=== PATIENT | female | born 1990 | race Caucasian/White ===

== ENCOUNTER → 2018-08-03 | Day surgery (SDC) | payer OTHER ==
--- NOTE | 2018-08-02 20:32 | PDGENHP ---
History and Physical - Chief Complaint LEFT HIP PAIN - History of Present Illness 1. Bilateral~Hip Dyplasia~ 2. ~~History of post-op monitoring for asthma/respiratory status HISTORY OF PRESENT ILLNESS: Gamais a~27 y.o.~very~~active~female~who I have had the pleasure to consult on today.~I have enjoyed meeting her.~Penelope~lives in [place].~~[employer] as a [employer] employee.~~She~is ;~she~has no~children. ~Gamaenjoys soccer (played for [employer]), running, hiking. Claudia's~left~hip pain started in around 10 yrs ago with worsening in last 1- 1.5 yrs, with~no~recalled trauma or injury, and with~some~previous complaints.~ Gamadoes not have~a known history of hip dysplasia, but does have a family history of dysplasia. Presentation today is of~anterolateral~left~hip pain deep inside. ~The hip~does~ wake her~at night and~does~click and catch on~her. Sitting~can be uncomfortable~ for her.~Gamadoes~report suffering from lower back pain episodes which preceded her hip pain.~She has scoliosis with 30 degree curve being managed conservatively.~As she has gotten her back pain under better control, her hip has become more bothersome. Gamahas~participated in physical therapy since early September 2017 (also did PT last summer)~and has~tried other conservative measures including dry needling, cortisone injection into the SIJs (2016- she had relatively good relief from these)~and chiropractic treatments.~Penelope~has not~received sufficient symptomatic improvement. Gamahas~utilized medication for pain management, including NSAID.~Gamahas used medication for 2-3x per week at most intermittently for years. Gamadenies issues with the right~hip. ~ Gamaunderstands that~penelope~has a hip and pelvis problem which should be researched and wishes to get a better understanding of~her~hip status, followed by an establishment of a treatment strategy, hoping~penelope~would be able to get back to~her~well being active life. History: Past medical history:~~ Patient~~has a past medical history of Asthma, Scoliosis, and Unspecified asthma (493.90). Relevant familial history:~Hip dysplasia Past surgical history:~ No. Surgery Anesthesia Year Outcome 1 Sinus surgery Unknown In high school Stayed o/n to monitor asthma 2 Adenoids Unknown Childhood Good Claudia~describes problematic issues with general anesthesia which includes overnight monitoring for asthma. I have reviewed, verified and agree with the past medical, surgical, family and social history. Current Medications:~has a current medication list which includes the following prescription(s): albuterol, budesonide-formoterol, and diclofenac sodium 1%. ALLERGIES:~is allergic to sulfa (sulfonamide antibiotics). Objective: Physical Examination: Gamais 5~feet~4~inches tall and weighs~127~Lbs. Gamais AAO x3; she~is well -nourished, in NAD. Skin is warm and dry. ~Breathing is non-labored. ~CV with RRR by pulse. Abdomen is soft, NTND. Currently,~she~walks with a~normal~gait. Trendelenburg sign is~negative~and proprioception~is normal,~both~side. She~presents~with mild~signs of joint laxity.~Beightons Score:2 ~(knees) Lower spine examination is~negative~for sciatic or femoral nerve irritation with negative~SLR &~femoral stretch tests. Range of motion of the spine is normal~for flexion, extension, and rotations,~with~associated pain on flexion.~~ Strength, Sensation and pulses are~normal -~bilaterally Ankles and knees exams are~normal~and~no~mal-alignment is evident.~ She~has~small R<L~leg length discrepancy. Thigh circumference is~symmetric~with no evidence for muscle atrophy~on both~ side. Hip ROM (degrees): FL ER At 90~hip FL IR At 90~hip FL AB AD EX IR Neutral hip ER Neutral hip R 110 50 40 50 5 10 45 25 L 110 50 30 50 5 10 45 15 Specific hip and pelvis tests: Impingement Test KORTNEY Roll Add. Longus R Negative Negative Negative Negative L +++ +++ Negative Negative Glut. Med ITB Posterior Imp R Negative 5/5 strength Negative 5/5 strength Negative L Negative 5/5 strength Negative 5/5 strength Negative Squeeze test measured~normal Bony Symphysis pubis is~mildly painful to touch~while concentric activity of the rectus abdominis, does not~produce pain at its insertion. Ilio Psos specific tests are~negative for pain during cycling for~the right hip~ and remarkable for non painful snap HF has~some pain(+++) with no weakness~the left hip. No lateral~capsule tenderness on the L.~ Greater trochanteric burse is~mildly~painful~on the left hip. Piriformis tests: FAIR is~negative,~with no~local signs of neuritis related to sciatic nerve. SIJs examination is~produces~mild~~pain on right side~with~normal~KORTNEY in relation and local tenderness. Hamstrings tests are~negative~functional contraction and negative~tendinopathy both hips. On a daily basis, the following percentages reflectArturo's overall total pain: Deep hip:~75% SIJs/ low back:~25% Imaging: Radiology studies which I~have personally reviewed, analyzed and measured are below: XR: AP of the hip and pelvis: Performed in a~good~technique Coccyx to pubic symphysis distance~1.6~cm. 3~degrees cephal [place]~Lines are preserved. Minimal~Pathological signs are seen in the Symphysis Pubis.~ No~Pathological signs are seen at the Ischial~tuberosity. ~ Specific measurements show: NSA~ LCE Sourcil~Angle Sharp's angle Lat. Cam Lat. Pincer C.Over~sign Head~Coverage % ATDmm R 137 15 13 40 Neg Neg Neg 65% 31.3 L 143 11 17 48 Neg Neg 12 o'clock 61% 33.3 Pos. wall sign ISS NAD ~~Dysplasia Comments R Negative Negative 19.6~mm ++ L + Negative 18.9~mm +++ Sclerosis Sup. Lat. OA Cysts Joint Space-WBZ Joint Space-Medial R Negative Negative Negative 7.0~mm 6.6~mm L Negative Negative Negative 6.3~mm 6.4~mm X Table lateral: Anterior cam lesion is~not seen~on both hips. Alpha Angle: ~ Right~57~degrees Left~63~degrees Impression and plan:Wilmer Malloyis a~27 y.o.~active female~suffering from symptomatic~Left~hip pain due to Hip Dyplasia~and labral tear~causing significant disability to~her~and altering~her~sport and life activities. Physical examination, imaging, and~her~story correspond with the diagnosis mentioned above. I explained that hip dysplasia is a condition wherein the hip joint has excessive play and instability due to a variety of factors, including the depth and adequacy of the socket, the orientation of the femur bone, and ligament laxity around the hip joint. Dysplasia ranges in severity from borderline to armando, with treatment options being specific to the specific nature of the problem. Left untreated, the instability in the hip joint can cause progressive tearing of the labrum and deterioration of the surface cartilage, ultimately resulting in progressive osteoarthritis of the hip. I reviewed conservative treatment options for dysplasia including activity modification to avoid positions of instability, physical therapy, non-steroidal anti-inflammatory medications, and various injections (corticosteroid and PRP) aimed at reducing inflammation in the hip joint or/and preventing dynamic instability and impingement. Although these measures may help to buy time, they are not a definitive solution to the problem given the underlying abnormality in the shape of the hip joint. Patients who have failed conservative management and continue to experience symptoms are candidates for definitive surgical treatment, which may consist of hip arthroscopy alone or in combination with more invasive bony realignment procedures of the hip socket and/or femur called periacetabular osteotomy (NAFISA) or derotational femoral osteotomy (DFO). Hip arthroscopy typically includes treating the labrum with either repair or reconstruction of the torn labrum; as well as addressing the underlying abnormalities by restoring the normal shape of the hip joint. ~If the cartilage is damaged a Microfracture surgical procedure may also be necessary to help stimulate the growth of fibrocartilage. If a patient requires a labral reconstruction or a Microfracture, the initial rehabilitation from the surgery may take longer, but the penitentiary results are typically favorable. I reviewed the technical aspects of periacetabular osteotomy (NAFISA) including risks, benefits, and expected course of recovery.~Claudia~understands that NAFISA is an inpatient procedure carried out through two medium sized incisions on the front and back of the hip joint. The hip socket is cut, realigned, and stabilized with 2 3 internal screws. Risks include infection, bleeding, injury to nearby nerves or vessels, stiffness, persistent pain, instability, failure of bony healing, implant related complications, and venous thromboembolic disease. Rarely, revision surgery may be required to address these problems. Risks, potential complications, side effects and recovery from surgical procedure were discussed in length. We explained how this surgery is an open procedure, and though patients tend to do well in the long-term, it involves significant pain in the first 2-4 weeks post-op and a rather lengthy rehab.~Overall recovery takes approximately 6 12~months depending on the extent of damage and degree of repair. Gamaunderstands that she~will undergo hip arthroscopy 1 week prior to the NAFISA to address damage inside the hip joint. Claudia~understands that hip arthroscopy and NAFISA are two separate procedures that are best performed one week apart, with the arthroscopy commencing first to "tighten up" any pathology evident in the hip joint (labral repair, etc.) and the NAFISA open procedure occurring 7-10 days later to realign the acetabulum. Gamawill review the info presented. In order to obtain more detailed information regarding the alignment, orientation, and shape of the bony hip and pelvis I will order a CT scan to be performed. The results of the CT scan, including femoral torsion and acetabular version measured values and 3D images, will aid me in deciding on the best treatment strategy and surgical pre-planning. In order to better evaluate the soft tissues and cartilage of the hip joint, I will order an MRI scan. Claudia is going to contact us after completing her imaging studies. Gamais happy with this plan. I have also supplied~her~with handouts, outlining the expected surgical treatment and rehab involved. I wish~Gamaall the best, ~~ Tari Ahuja MD History Information - Allergies/Home Medication List Allergies/Adverse Reactions: Sulfa (Sulfonamide Antibiotics) Allergy (Verified 07/23/18 09:18) Rash Home Medications: Albuterol Sulfate Hfa PRN 07/23/18 [Last Taken Unknown] Herbals/Supplements -Info Only DAILY 07/23/18 [Last Taken Unknown] I have personally reviewed and updated: medical history - Social History Smoking Status: Never smoked Review of Systems Review of Systems: Physical Exam Physical Exam:
[~2018-08-03] MED LIST: ACETAMINOPHEN 500 MG TAB PO ONE; ACETAMINOPHEN 500 MG TAB PO PRN; ALBUTEROL 3 ML DEYVIAL IH PRN; BUPIVACAINE/EPI 0.25% 30 ML SDV ONE; DEXAMETHASONE 4 MG/ML VIAL IVP PRN; DEXAMETHASONE 4 MG/ML VIAL ONE; DIAZEPAM 5 MG/ML 1 ML SYR IVP PRN; EPINEPHrine 1 MG/ML INJ ONE; HYDROmorphONE/DILAUDID 1 MG/ML INJ IVP PRN; KETOROLAC 30 MG/1 ML SDV ONE; LABETALOL HCL 5 MG/ML 20 ML MDV IVP PRN; LIDOCAINE 2% 5 ML SDV ONE; LR 1,000 ML IV ONE; LR 500 ML IV PRN; MEPERIDINE 25 MG/0.5 ML AMP IVP PRN; METOCLOPRAMIDE 10 MG/2 ML VIAL IVP PRN; MIDAZOLAM 2 MG/2 ML VIAL IVP ONE; NALOXONE HCL 0.4 MG/ML INJ IVP PRN; ONDANSETRON 4 MG/2 ML VIAL IVP PRN; ONDANSETRON 4 MG/2 ML VIAL ONE; ONDANSETRON DISINTEGRATING 4 MG TAB ONE; ONDANSETRON DISINTEGRATING 4 MG TAB PO ONE; PHENYLEPHRINE HCL 100 MCG/ML SYR IVP PRN; PREGABALIN 150 MG CAP PO ONE; PROMETHAZINE HCL 25 MG/ML INJ IVP PRN; PROPOFOL 200 MG/20 ML VIAL ONE; PROPOFOL/EMULSION 500 MG/50 ML BOTTLE IV ONE; ROCURONIUM 50 MG/5 ML VIAL ONE; SCOPOLAMINE HYDROBROMIDE 1 MG/3 DAYS PATCH TD ONE; ceFAZolin 2 GM/DEXTROSE 100 ML IV ONE; fentaNYL 100 MCG/2 ML INJ IVP PRN; fentaNYL 100 MCG/2 ML INJ ONE; oxyCODONE IR 5 MG TAB ONE; oxyCODONE IR 5 MG TAB PO PRN
--- NOTE | 2018-08-03 07:44 | PDANEPAE ---
ANE History of Present Illness left hip pain ANE Past Medical History - Cardiovascular History Hx Hypertension: No Hx Arrhythmias: No Hx Chest Pain: No Hx Coronary Artery / Peripheral Vascular Disease: No Hx CHF / Valvular Disease: No Hx Palpitations: No - Pulmonary History Hx COPD: No Hx Asthma/Reactive Airway Disease: Yes Hx Recent Upper Respiratory Infection: No Hx Oxygen in Use at Home: No Hx Sleep Apnea: No Sleep Apnea Screening Result - Last Documented: Negative Pulmonary History Comment: EXERCISE INDUCED ASTHMA - Neurologic History Hx Cerebrovascular Accident: No Hx Seizures: No Hx Dementia: No - Endocrine History Hx Diabetes: No Hypothyroid: No Hyperthyroid: No Obesity: no - Renal History Hx Renal Disorders: No - Liver History Hx Hepatic Disorders: No - Neurological & Psychiatric Hx Hx Neurological and Psychiatric Disorders: No - Cancer History Hx Cancer: No - Congenital Disorder History Hx Congenital Disorders: Yes Congenital History Comment: MARTHA HIP DYSPLASIA - GI History GERD: no Hx Gastrointestinal Disorders: No - Other Health History Other Health History: ANEMIA IN THE PAST (2013) - Chronic Pain History Chronic Pain: Yes (MARTHA HIPS) - Surgical History Prior Surgeries: ADENOIDS. SINUS 2007 ANE Review of Systems Review of systems is: negative Review of Systems: - Exercise capacity Exercise capacity: >=4 METS METS (RN): 6 METS ANE Patient History - Allergies Allergies/Adverse Reactions: Sulfa (Sulfonamide Antibiotics) Allergy (Verified 07/23/18 09:18) Rash - Home Medications Home medications: home medication list seen and reviewed Home Medications: Albuterol [Proventil Inhaler HFA (*)] 1 - 2 puffs IH Q4H PRN 07/23/18 [Last Taken 08/02/18] Ascorbic Acid [Vitamin C 500 mg (*)] 500 mg PO DAILY 08/03/18 [Last Taken Unknown] Multivitamins [Multivitamin (*)] 1 each PO DAILY 08/03/18 [Last Taken Unknown] Vitamin B Complex [Vitamin B Complex (OTC)] 1 each PO DAILY 08/03/18 [Last Taken Unknown] - NPO status NPO Status: no food or drink >8 hours NPO Since - Liquids (Date): 08/03/18 NPO Since - Liquids (Time): 02:30 NPO Since - Solids (Date): 08/02/18 NPO Since - Solids (Time): 19:00 - Anes Hx Anes Hx: no prior problems - Smoking Hx Smoking Status: Never smoked ANE Labs/Vital Signs - Vital Signs Vital Signs: reviewed preoperatively; see RN documention for details Blood Pressure: 114/74 Heart Rate: 55 Respiratory Rate: 16 O2 Sat (%): 98 Height: 161.93 cm Weight: 58.967 kg ANE Physical Exam - Airway Neck exam: FROM Mallampati Score: Class 1 Mouth exam: normal dental/mouth exam - Pulmonary Pulmonary: no respiratory distress - Cardiovascular Cardiovascular: regular rate and rhythym - ASA Status ASA Status: II ANE Anesthesia Plan Anesthesia Plan: general endotracheal anesthesia
--- NOTE | 2018-08-03 12:07 | POSTANESTH ---
Post Anesthetic Evaluation Cardiovascular Status: Normal, Stable Respiratory Status: Normal, Stable Level of Consciousness/Mental Status: Can Participate in Eval Pain Control: Adequate, Prn Tx Ordered Nausea/Vomiting Control: Adequate, Prn Tx Ordered Complications Possibly Related to Anesthesia: None Noted
--- NOTE | 2018-08-03 12:26 | POSTOPPROG ---
Post Op Note Date of Operation: 08/03/18 Surgeon: Chad Krueger Fact Checker: Dr. Parks Anesthesia: GET(General Endotracheal) Pre-op Diagnosis: LEFT BEATRIZ Post-op Diagnosis: LEFT BEATRIZ Procedure: Left Hip Arthroscopy Inf/Abcess present in the surg proc area at time of surgery?: No
[2018-08-03 12:31] VITALS: BP 106/71
== END | disposition home or self-care (01) ==
LOC: FSGY 06:39
PROVIDERS: ATTEND Orthopaedic Surgery Sports Medicine
PROC: 0SQB4ZZ Repair Left Hip Joint, Percutaneous Endoscopic Approach (ICD-10-PCS; principal; 2018-08-03 08:15)
DX: Q65.9 Congenital deformity of hip, unspecified (principal); M76.892 Other specified enthesopathies of left lower limb, excluding foot; M24.852 Other specific joint derangements of left hip, not elsewhere classified; J45.909 Unspecified asthma, uncomplicated
CPT/HCPCS: C1713; J0171; J0690; J1100; J1885; J2250; J2405; J2704; J3010

== ENCOUNTER 2018-08-10 05:52 | Inpatient (IN) | payer OTHER ==
--- NOTE | 2018-08-09 21:30 | PDGENHP ---
History and Physical - Chief Complaint LEFT HIP PAIN - History of Present Illness Diagnosis: 1. Bilateral~Hip Dyplasia~ 2. 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 ~Gamaenjoys soccer (played for [employer]), running, hiking. Claudia's~left~hip pain started in around 10 yrs ago with worsening in last 1- 1.5 yrs, with~no~recalled trauma or injury, and with~some~previous complaints.~ Gamadoes not have~a known history of hip dysplasia, but does have a family history of dysplasia. Presentation today is of~anterolateral~left~hip pain deep inside. ~The hip~does~ wake her~at night and~does~click and catch on~her. Sitting~can be uncomfortable~ for her.~Gamadoes~report suffering from lower back pain episodes which preceded her hip pain.~She has scoliosis with 30 degree curve being managed conservatively.~As she has gotten her back pain under better control, her hip has become more bothersome. Gamahas~participated in physical therapy since early September 2017 (also did PT last summer)~and has~tried other conservative measures including dry needling, cortisone injection into the SIJs (2016- she had relatively good relief from these)~and chiropractic treatments.~She~has not~received sufficient symptomatic improvement. Gamahas~utilized medication for pain management, including NSAID.~Gamahas used medication for 2-3x per week at most intermittently for years. Gamadenies issues with the right~hip. ~ Gamaunderstands that~penelope~has a hip and pelvis problem which should be researched and wishes to get a better understanding of~her~hip status, followed by an establishment of a treatment strategy, hoping~penelope~would be able to get back to~her~well being active life. History: Past medical history:~~ Patient~~has a past medical history of Asthma, Scoliosis, and Unspecified asthma (493.90). Relevant familial history:~Hip dysplasia Past surgical history:~ No. Surgery Anesthesia Year Outcome 1 Sinus surgery Unknown In high school Stayed o/n to monitor asthma 2 Adenoids Unknown Childhood Good Claudia~describes problematic issues with general anesthesia which includes overnight monitoring for asthma. I have reviewed, verified and agree with the past medical, surgical, family and social history. Current Medications:~has a current medication list which includes the following prescription(s): albuterol, budesonide-formoterol, and diclofenac sodium 1%. ALLERGIES:~is allergic to sulfa (sulfonamide antibiotics). Objective: Physical Examination: Gamais 5~feet~4~inches tall and weighs~127~Lbs. Gamais AAO x3; she~is well -nourished, in NAD. Skin is warm and dry. ~Breathing is non-labored. ~CV with RRR by pulse. Abdomen is soft, NTND. Currently,~she~walks with a~normal~gait. Trendelenburg sign is~negative~and proprioception~is normal,~both~side. She~presents~with mild~signs of joint laxity.~Beightons Score:2 ~(knees) Lower spine examination is~negative~for sciatic or femoral nerve irritation with negative~SLR &~femoral stretch tests. Range of motion of the spine is normal~for flexion, extension, and rotations,~with~associated pain on flexion.~~ Strength, Sensation and pulses are~normal -~bilaterally Ankles and knees exams are~normal~and~no~mal-alignment is evident.~ She~has~small R<L~leg length discrepancy. Thigh circumference is~symmetric~with no evidence for muscle atrophy~on both~ side. Hip ROM (degrees): FL ER At 90~hip FL IR At 90~hip FL AB AD EX IR Neutral hip ER Neutral hip R 110 50 40 50 5 10 45 25 L 110 50 30 50 5 10 45 15 Specific hip and pelvis tests: Impingement Test KORTNEY Roll Add. Longus R Negative Negative Negative Negative L +++ +++ Negative Negative Glut. Med ITB Posterior Imp R Negative 5/5 strength Negative 5/5 strength Negative L Negative 5/5 strength Negative 5/5 strength Negative Squeeze test measured~normal Bony Symphysis pubis is~mildly painful to touch~while concentric activity of the rectus abdominis, does not~produce pain at its insertion. Ilio Psos specific tests are~negative for pain during cycling for~the right hip~ and remarkable for non painful snap HF has~some pain(+++) with no weakness~the left hip. No lateral~capsule tenderness on the L.~ Greater trochanteric burse is~mildly~painful~on the left hip. Piriformis tests: FAIR is~negative,~with no~local signs of neuritis related to sciatic nerve. SIJs examination is~produces~mild~~pain on right side~with~normal~KORTNEY in relation and local tenderness. Hamstrings tests are~negative~functional contraction and negative~tendinopathy both hips. On a daily basis, the following percentages reflectArturo's overall total pain: Deep hip:~75% SIJs/ low back:~25% Imaging: Radiology studies which I~have personally reviewed, analyzed and measured are below: XR: AP of the hip and pelvis: Performed in a~good~technique Coccyx to pubic symphysis distance~1.6~cm. 3~degrees cephal [place]~Lines are preserved. Minimal~Pathological signs are seen in the Symphysis Pubis.~ No~Pathological signs are seen at the Ischial~tuberosity. ~ Specific measurements show: NSA~ LCE Sourcil~Angle Sharp's angle Lat. Cam Lat. Pincer C.Over~sign Head~Coverage % ATDmm R 137 15 13 40 Neg Neg Neg 65% 31.3 L 143 11 17 48 Neg Neg 12 o'clock 61% 33.3 Pos. wall sign ISS NAD ~~Dysplasia Comments R Negative Negative 19.6~mm ++ L + Negative 18.9~mm +++ Sclerosis Sup. Lat. OA Cysts Joint Space-WBZ Joint Space-Medial R Negative Negative Negative 7.0~mm 6.6~mm L Negative Negative Negative 6.3~mm 6.4~mm X Table lateral: Anterior cam lesion is~not seen~on both hips. Alpha Angle: ~ Right~57~degrees Left~63~degrees Impression and plan:Wilmer Malloyis a~27 y.o.~active female~suffering from symptomatic~Left~hip pain due to Hip Dyplasia~and labral tear~causing significant disability to~her~and altering~her~sport and life activities. Physical examination, imaging, and~her~story correspond with the diagnosis mentioned above. I explained that hip dysplasia is a condition wherein the hip joint has excessive play and instability due to a variety of factors, including the depth and adequacy of the socket, the orientation of the femur bone, and ligament laxity around the hip joint. Dysplasia ranges in severity from borderline to armando, with treatment options being specific to the specific nature of the problem. Left untreated, the instability in the hip joint can cause progressive tearing of the labrum and deterioration of the surface cartilage, ultimately resulting in progressive osteoarthritis of the hip. I reviewed conservative treatment options for dysplasia including activity modification to avoid positions of instability, physical therapy, non-steroidal anti-inflammatory medications, and various injections (corticosteroid and PRP) aimed at reducing inflammation in the hip joint or/and preventing dynamic instability and impingement. Although these measures may help to buy time, they are not a definitive solution to the problem given the underlying abnormality in the shape of the hip joint. Patients who have failed conservative management and continue to experience symptoms are candidates for definitive surgical treatment, which may consist of hip arthroscopy alone or in combination with more invasive bony realignment procedures of the hip socket and/or femur called periacetabular osteotomy (NAFISA) or derotational femoral osteotomy (DFO). Hip arthroscopy typically includes treating the labrum with either repair or reconstruction of the torn labrum; as well as addressing the underlying abnormalities by restoring the normal shape of the hip joint. ~If the cartilage is damaged a Microfracture surgical procedure may also be necessary to help stimulate the growth of fibrocartilage. If a patient requires a labral reconstruction or a Microfracture, the initial rehabilitation from the surgery may take longer, but the truck terminal manager results are typically favorable. I reviewed the technical aspects of periacetabular osteotomy (NAFISA) including risks, benefits, and expected course of recovery.~Claudia~understands that NAFISA is an inpatient procedure carried out through two medium sized incisions on the front and back of the hip joint. The hip socket is cut, realigned, and stabilized with 2 3 internal screws. Risks include infection, bleeding, injury to nearby nerves or vessels, stiffness, persistent pain, instability, failure of bony healing, implant related complications, and venous thromboembolic disease. Rarely, revision surgery may be required to address these problems. Risks, potential complications, side effects and recovery from surgical procedure were discussed in length. We explained how this surgery is an open procedure, and though patients tend to do well in the long-term, it involves significant pain in the first 2-4 weeks post-op and a rather lengthy rehab.~Overall recovery takes approximately 6 12~months depending on the extent of damage and degree of repair. Claudia~understands that she~will undergo hip arthroscopy 1 week prior to the NAFISA to address damage inside the hip joint. Claudia~understands that hip arthroscopy and NAFISA are two separate procedures that are best performed one week apart, with the arthroscopy commencing first to "tighten up" any pathology evident in the hip joint (labral repair, etc.) and the NAFISA open procedure occurring 7-10 days later to realign the acetabulum. Claudia~will review the info presented. In order to obtain more detailed information regarding the alignment, orientation, and shape of the bony hip and pelvis I will order a CT scan to be performed. The results of the CT scan, including femoral torsion and acetabular version measured values and 3D images, will aid me in deciding on the best treatment strategy and surgical pre-planning. In order to better evaluate the soft tissues and cartilage of the hip joint, I will order an MRI scan. Claudia is going to contact us after completing her imaging studies. Gamais happy with this plan. I have also supplied~her~with handouts, outlining the expected surgical treatment and rehab involved. I wish~Gamaall the best, ~~ History Information - Allergies/Home Medication List Allergies/Adverse Reactions: Sulfa (Sulfonamide Antibiotics) Allergy (Verified 08/06/18 11:00) Rash Home Medications: Albuterol [Proventil Inhaler HFA (*)] 1 - 2 puffs IH Q4H PRN 07/23/18 [Last Taken 08/02/18] Ascorbic Acid [Vitamin C 500 mg (*)] 500 mg PO DAILY 08/03/18 [Last Taken Unknown] Multivitamins [Multivitamin (*)] 1 each PO DAILY 08/03/18 [Last Taken Unknown] Vitamin B Complex [Vitamin B Complex (OTC)] 1 each PO DAILY 08/03/18 [Last Taken Unknown] I have personally reviewed and updated: medical history - Social History Smoking Status: Never smoked Review of Systems Review of Systems: Physical Exam Physical Exam:
[2018-08-10] MEDS ORDERED: ACETAMINOPHEN 500 MG TAB PO ONE (06:08)
[2018-08-10] MEDS ORDERED: TRANEXAMIC ACID 1,000 MG in NS 100 ML IV ONE (06:08)
[2018-08-10] MEDS ORDERED: PREGABALIN 150 MG CAP PO ONE (06:08)
[2018-08-10] MEDS ORDERED: SCOPOLAMINE HYDROBROMIDE 1 MG/3 DAYS PATCH TD ONE (06:08)
[2018-08-10] MEDS ORDERED: ceFAZolin 2 GM/DEXTROSE 100 ML IV ONE (06:08)
[2018-08-10] MEDS ORDERED: LR 1,000 ML IV ONE (06:12)
[2018-08-10] MEDS ORDERED: MIDAZOLAM 2 MG/2 ML VIAL IVP ONE (06:56)
--- NOTE | 2018-08-10 06:59 | PDANEPAE ---
ANE History of Present Illness 27 yo with hip dysplasia ANE Past Medical History - Cardiovascular History Hx Hypertension: No Hx Arrhythmias: No Hx Chest Pain: No Hx Coronary Artery / Peripheral Vascular Disease: No Hx CHF / Valvular Disease: No Hx Palpitations: No - Pulmonary History Hx COPD: No Hx Asthma/Reactive Airway Disease: Yes Hx Recent Upper Respiratory Infection: No Hx Oxygen in Use at Home: No Hx Sleep Apnea: No Sleep Apnea Screening Result - Last Documented: Negative Pulmonary History Comment: EXERCISE INDUCED ASTHMA - Neurologic History Hx Cerebrovascular Accident: No Hx Seizures: No Hx Dementia: No - Endocrine History Hx Diabetes: No - Renal History Hx Renal Disorders: No - Liver History Hx Hepatic Disorders: No - Neurological & Psychiatric Hx Hx Neurological and Psychiatric Disorders: No - Cancer History Hx Cancer: No - Congenital Disorder History Hx Congenital Disorders: Yes Congenital History Comment: MARTHA HIP DYSPLASIA - GI History Hx Gastrointestinal Disorders: No - Other Health History Other Health History: ANEMIA IN THE PAST (2013) - Chronic Pain History Chronic Pain: Yes (MARTHA HIPS) - Surgical History Prior Surgeries: ADENOIDS. SINUS 2008. hip scope last week ANE Review of Systems Review of Systems: - Exercise capacity METS (RN): 6 METS ANE Patient History - Allergies Allergies/Adverse Reactions: Sulfa (Sulfonamide Antibiotics) Allergy (Verified 08/06/18 11:00) Rash - Home Medications Home Medications: Albuterol [Proventil Inhaler HFA (*)] 1 - 2 puffs IH Q4H PRN 07/23/18 [Last Taken 1 Week Ago ~08/03/18] Ascorbic Acid [Vitamin C 500 mg (*)] 500 mg PO DAILY 08/03/18 [Last Taken 2 Weeks Ago ~07/27/18] Multivitamins [Multivitamin (*)] 1 each PO DAILY 08/03/18 [Last Taken 2 Weeks Ago ~07/27/18] Vitamin B Complex [Vitamin B Complex (OTC)] 1 each PO DAILY 08/03/18 [Last Taken 2 Weeks Ago ~07/27/18] - NPO status NPO Status: no food or drink >8 hours NPO Since - Liquids (Date): 08/09/18 NPO Since - Liquids (Time): 23:30 NPO Since - Solids (Date): 08/09/18 NPO Since - Solids (Time): 20:30 - Anes Hx Anes Hx: no prior problems - Smoking Hx Smoking Status: Never smoked - Family Anes Hx Family Hx Anesthesia Complications: none ANE Labs/Vital Signs - Vital Signs Blood Pressure: 108/66 Heart Rate: 58 Respiratory Rate: 243 O2 Sat (%): 96 Height: 162.56 cm Weight: 58.967 kg ANE Physical Exam - Airway Neck exam: FROM Mallampati Score: Class 1 - Pulmonary Pulmonary: no respiratory distress, clear to auscultation - Cardiovascular Cardiovascular: regular rate and rhythym - ASA Status ASA Status: II ANE Anesthesia Plan Anesthesia Plan: general endotracheal anesthesia, spinal
[2018-08-10] MEDS ORDERED: CITRATE DEXTROSE SOLN 500 ML BAG ONE ×2 (07:00→11:23)
[2018-08-10] MEDS ORDERED: MIDAZOLAM 2 MG/2 ML VIAL ONE (07:01)
[2018-08-10 07:03] LABS: PLATELET COUNT 190 10^3/uL (150-400)
[2018-08-10] MEDS ORDERED: fentaNYL 100 MCG/2 ML INJ ONE (07:16)
[2018-08-10] MEDS ORDERED: morphINE PF 5 MG/10 ML INJ ONE (07:17)
[2018-08-10] MEDS ORDERED: BUPIVACAINE 0.25% 30 ML SDV ONE (07:20)
[2018-08-10] MEDS ORDERED: PROPOFOL 200 MG/20 ML VIAL ONE (07:24)
[2018-08-10] MEDS ORDERED: PROPOFOL/EMULSION 500 MG/50 ML BOTTLE IV ONE ×4 (07:24→12:55)
[2018-08-10] MEDS ORDERED: ALBUTEROL 3 ML DEYVIAL IH PRN (13:54)
[2018-08-10] MEDS ORDERED: HYDROmorphONE/DILAUDID 1 MG/ML INJ IVP PRN (13:54)
[2018-08-10] MEDS ORDERED: NALOXONE HCL 0.4 MG/ML INJ IVP PRN ×3 (13:54→15:30)
[2018-08-10] MEDS ORDERED: fentaNYL 100 MCG/2 ML INJ IVP PRN (13:54)
[2018-08-10] MEDS ORDERED: PROMETHAZINE HCL 25 MG/ML INJ IVP PRN (13:54)
[2018-08-10] MEDS ORDERED: ONDANSETRON 4 MG/2 ML VIAL IVP PRN ×3 (13:54→15:30)
--- NOTE | 2018-08-10 13:55 | POSTANESTH ---
Post Anesthetic Evaluation Cardiovascular Status: Normal, Stable Respiratory Status: Normal, Stable Level of Consciousness/Mental Status: Can Participate in Eval Pain Control: Inadeq, Add Tx Required Nausea/Vomiting Control: Adequate, Prn Tx Ordered Complications Possibly Related to Anesthesia: None Noted
[2018-08-10] MEDS ORDERED: BISACODYL 10 MG SUPP PR PRN (14:12)
[2018-08-10] MEDS ORDERED: ONDANSETRON DISINTEGRATING 4 MG TAB PO PRN (14:12)
[2018-08-10] MEDS ORDERED: MAGNESIUM HYDROXIDE 30 ML UDCUP PO PRN (14:12)
[2018-08-10] MEDS ORDERED: LACTULOSE 20 GM/30 ML UDCUP PO PRN (14:12)
[2018-08-10] MEDS ORDERED: diphenhydrAMINE 25 MG CAP PO PRN (14:16)
[2018-08-10] MEDS ORDERED: HYDROmorphONE/DILAUDID 6 MG/30 ML PCA IV PRN (14:16)
[2018-08-10] MEDS ORDERED: ALBUTEROL 60 PUFFS/8 GM MDI IH PRN (14:22)
--- NOTE | 2018-08-10 15:06 | PDMN ---
Medical Necessity Medical necessity: MCG : [facility] OP: Karla SKELTON AUTH# [id number] FOR CPT [id number] INPT
[2018-08-10] MEDS ORDERED: RN MESSAGE:REGARDING ANALGESIC ORDERING DR MISC SCH (15:30)
[2018-08-10] MEDS: RN MESSAGE:DATE/TIME OF ADMIN MISC SCH (17:06)
[2018-08-10] MEDS: NS 1,000 ML IV SCH (18:15)
[2018-08-10] MEDS: oxyCODONE IR 5 MG TAB PO SCH ×2 (18:22→22:01)
[2018-08-10] MEDS: SENNOSIDES/DOCUSATE SODIUM TAB PO SCH (22:01)
[2018-08-11] MEDS: oxyCODONE IR 5 MG TAB PO SCH ×6 (02:00→22:07)
[2018-08-11] MEDS: RN MESSAGE:DATE/TIME OF ADMIN MISC SCH ×2 (03:21→15:36)
[2018-08-11] MEDS: NS 1,000 ML IV SCH ×2 (04:21→13:33)
[2018-08-11] MEDS: SENNOSIDES/DOCUSATE SODIUM TAB PO SCH ×2 (08:19→20:29)
[2018-08-11] MEDS: POLYETHYLENE GLYCOL 3350 17 GM PKT PO PRN (08:19)
[2018-08-11] MEDS: PANTOPRAZOLE SODIUM 40 MG TAB PO SCH (08:19)
[2018-08-11] MEDS ORDERED: NS 250 ML IV ONE (08:43)
[2018-08-11] MEDS: ACETAMINOPHEN 325 MG TAB PO PRN (09:31)
--- NOTE | 2018-08-11 10:21 | GCON ---
[f rep st] CONSULTATION REFERRING PHYSICIAN: Chad Krueger MD REASON FOR CONSULTATION: Medical management. HISTORY OF PRESENT ILLNESS: This patient is a 27-year-old female who has no significant past medical history who has been having increased hip pain mainly noted in the left hip area for the last 12-18 months. It was to the point where the pain was so intense that it would wake her up at night. She has a history of scoliosis and [facility] She talked to her doctor there about the hip pain. She tried physical therapy for several months without significant improvement. Recommendation was to get further evaluation from Dr. Krueger. Subsequently, she had a left periacetabular osteotomy. She has a ELECTRICAL ENGINEERING DRAFTSPERSON pump that is managing her pain quite well. She has no complaints of chest pain, shortness of breath. Her appetite is good. Overall, she is feeling fine. The hospitalist team was asked to consult in regard to management of hypotension and other medical issues. PAST MEDICAL HISTORY: 1. Asthma. 2. Scoliosis. PAST SURGICAL HISTORY: Sinus surgery. SOCIAL HISTORY: She works in [employer]. She works in the [place] area. She has been for 2-1/2 years. She does not have children. She does not smoke. She occasionally drinks alcohol. She is very athletic and played for the soccer team. FAMILY HISTORY: Parents are healthy. ALLERGIES: Sulfa causes a rash. HOME MEDICATIONS: Albuterol inhaler 1-2 puffs q.4 hours p.r.n., vitamin B complex 1 tab daily, multivitamin 1 tab daily, and vitamin C 500 mg daily. REVIEW OF SYSTEMS: A 10-point review of system was performed, was negative other than pertinent positives in the HPI and Past Medical History. PHYSICAL EXAM: GENERAL: This patient is a very healthy 27-year-old female who appears in no distress. VITAL SIGNS: Blood pressure is 110/40, heart rate is 77, respiratory rate of 18, O2 saturation on room air 97%, temperature is 37.3 Celsius. EYES: Pupils are equal reactive. EOMs are intact. No conjunctival injection noted. ENT: Normal ears. Hearing intact. Oral airway is moist. NECK: Trachea is midline. CARDIOVASCULAR: Regular rate and rhythm. No murmurs, rubs, or gallops noted. CHEST: Lungs with normal respiratory effort. Clear without wheezing, rales, rhonchi. ABDOMEN: Soft, nontender. GENITOURINARY: She has a Ervin catheter in place. SKIN: Left hip area has a dressing that is dry, intact with some noted swelling. MUSCULOSKELETAL: Not evaluated. PSYCHIATRIC: She is alert and oriented. Normal mood and affect. Normal judgment, insight, and normal memory. DATA: Reviewed. A CBC shows a white blood cell count of 12.10, hemoglobin of 10.6, hematocrit of 30.5, platelet count of 137. Chemistry: Sodium is 136, potassium 4, chloride of 108, BUN of 10, glucose of 107, calcium 7.7. ASSESSMENT AND PLAN: 1. Postoperative hypotension. She was given a normal saline bolus this morning with good results. Will continue to follow. 2. Leukocytosis. Suspect this is stress induced. Will recheck labs in the morning. 3. Acute blood loss anemia. Will follow. 4. Thrombocytopenia. Will follow. 5. Hip pain status post a left periacetabular osteotomy, doing quite well with this, care per Orthopedics team. 6. Deep venous thrombosis prophylaxis, on aspirin per Orthopedics. Thank you for this consultation with this delightful patient. The hospitalist team will continue to follow her throughout her stay. /[id number]/MODL MTDD
--- NOTE | 2018-08-11 11:19 | PDPAINCON ---
Pain Management Consultation Patient referred by : Julisa Oneill - Subjective Pain is: low, well controlled Side effects include: itchiness Activity: unable to ambulate Comments: Pt became dizzy when attempting to get out of bed - Objective Technique: spinal opioid Site: lumbar Sensory and motor exam: block has resolved, no apparent ill effects - Assessment/Plan Assessment/Plan: pain well-controlled, continue current mgmt
--- NOTE | 2018-08-11 12:53 | ASMTCMCOM ---
CM Note CM Note Notes: Pt had planned surgery for dysplasia, resides with spouse. PT rec home/outpatient. Antici[tran pt will d/c when medically stable following MD rec for outpatient PT. No CM d/c needs identified. CM available for changes/needs. D/c plan: Independent Date Signed: 08/11/2018 12:53 PM Electronically Signed By:JAMAAL Garcia
--- NOTE | 2018-08-11 22:02 | SOAPPROG ---
SOAP Progress Note Assessment/Plan: Assessment: 27 yo F POD#1 s/p L NAFISA, doing well post-operatively. Plan: Transition SUBSTATION OPERATOR CONVERSION to PO pain meds as able ASA, SCDs for DVT ppx NWB LLE, PT/OT AP Pelvis XR POD#3, must be cleared by Dr. Krueger prior to discharge Anticipate stable for d/c Thursday vs Thursday08/11/18 21:59 Subjective: Pt reports tolerable pain on SUBSTATION OPERATOR CONVERSION, somewhat worse with activity. No CP/SOB. Ervin removed today and voiding. Objective: Vital Signs Temp Pulse Resp BP Pulse Ox 37.0 C 75 18 101/50 L 95 08/11/18 19:58 08/11/18 19:58 08/11/18 19:58 08/11/18 19:58 08/11/18 19:58 Laboratory Results 08/11/18 04:46 08/11/18 04:46 08/10/18 08/11/18 08/12/18 05:59 05:59 05:59 Intake Total 1000 2350 Output Total 3500 1800 Balance -2500 550 Gen: NAD L hip dressings c/d/i No lateral thigh numbness 5/5 TA, GSC, EHL SILT throughout foot ICD10 Worksheet Patient Problems: Problems Problem Status Onset Hip dysplasia Acute - ICD10 Problem Qualifiers (1) Hip dysplasia
[2018-08-11] MEDS: DIAZEPAM 2 MG TAB PO PRN (22:51)
[2018-08-12] MEDS: oxyCODONE IR 5 MG TAB PO SCH ×6 (02:03→21:43)
[2018-08-12 04:50] LABS: PLATELET COUNT 116 10^3/uL (150-400)
[2018-08-12] MEDS: PANTOPRAZOLE SODIUM 40 MG TAB PO SCH (09:22)
[2018-08-12] MEDS: SENNOSIDES/DOCUSATE SODIUM TAB PO SCH ×2 (09:23→21:41)
--- NOTE | 2018-08-12 13:27 | SOAPPROG ---
SOAP Progress Note Assessment/Plan: Assessment:Called to evaluate swelling in back. Swelling does not appear to related to spinal placement. Both swelling and gait problem need to be addressed by surgical team. If these findings are not consistent with surgery, then a neurological consultation should be considered. Plan: Surgical evaluation. Consider Neurology consultation if indicated 08/12/18 13:23 08/12/18 13:28 Subjective: Pt complains of swelling in sacral area. Pt also complains of difficult in gait on left side while ambulating. Pt complains of headache. No photopobia, non-postional, points to periorbital area. Objective: Vital Signs Temp Pulse Resp BP Pulse Ox 37.5 C 65 12 98/42 L 93 08/12/18 11:53 08/12/18 11:53 08/12/18 11:53 08/12/18 11:53 08/12/18 11:53 Laboratory Results 08/12/18 04:35 08/11/18 04:46 08/11/18 08/12/18 08/13/18 05:59 05:59 05:59 Intake Total 1000 2850 726 Output Total 3500 2400 600 Balance -2500 450 126 Mild fever. Site of spinal injection non-erythematous, no swelling, non- tender. Some edema in sacral area, non-tender, non-erythematous. - Time Spent With Patient Time Spent With Patient: 20 minutes - Pending Discharge Pending Discharge Within 24 Hours: No ICD10 Worksheet Patient Problems: Problems Problem Status Onset Hip dysplasia Acute
[2018-08-12] MEDS: ASPIRIN EC 81 MG TAB PO SCH (13:37)
--- NOTE | 2018-08-12 14:03 | HOSPPROG ---
Hospitalist Progress Note Assessment/Plan: 27 year old female admitted for periacetabular osteotomy. Post op hypotension- still with some hypotension. H/H down today to 9.5/28 from 10.6/30 yesterday. BP remains stable. PRN fluid bolus. If H/H drops below 7 will transfuse Acute blood loss anemia- transfuse if H/H drop below 7/21 Thrombocytopenia- plates down to 116 today. Cont to monitor. Leukocytosis- resolved today. No evidence of infection. Monitor Hip Pain- stop dilaudid EXCELLENCE SPECIALIST, start oral analgesia. DVT- asa, per Dr. Krueger Thank you for allowing us to participate in the care of this patient. Medicine will follow. Subjective: gets winded easily. Up walking today. off dilaudid. Objective: Vital Signs Temp Pulse Resp BP Pulse Ox 37.5 C 65 12 98/42 L 93 08/12/18 11:53 08/12/18 11:53 08/12/18 11:53 08/12/18 11:53 08/12/18 11:53 Laboratory Results 08/12/18 04:35 08/11/18 04:46 08/11/18 08/12/18 08/13/18 05:59 05:59 05:59 Intake Total 1000 2850 726 Output Total 3500 2400 600 Balance -2500 450 126 - Physical Exam Constitutional: no apparent distress, appears nourished, not in pain Eyes: PERRL, anicteric sclera, EOMI Ears, Nose, Mouth, Throat: moist mucous membranes, hearing normal, ears appear normal, no oral mucosal ulcers Cardiovascular: regular rate and rhythym, no murmur, rub, or gallop Respiratory: no respiratory distress, no rales or rhonchi, clear to auscultation Gastrointestinal: normoactive bowel sounds, soft, non-tender abdomen, no palpable masses Genitourinary: no bladder fullness, no bladder tenderness, no renal bruits Skin: no rashes or abrasions, no fluctuance, no induration Musculoskeletal: full muscle strength, no muscle tenderness, normal joint ROM Neurologic: AAOx3, sensation intact bilaterally Psychiatric: interacting appropriately, not anxious, not encephalopathic, thought process linear Lymph, Heme, Immunologic: no cervical LAD, no supraclavicular LAD ICD10 Worksheet Patient Problems: Problems Problem Status Onset Hip dysplasia Acute
[2018-08-12] MEDS: ACETAMINOPHEN 325 MG TAB PO PRN (15:15)
[2018-08-12] MEDS: DIAZEPAM 2 MG TAB PO PRN (22:29)
[2018-08-13] MEDS: oxyCODONE IR 5 MG TAB PO SCH ×4 (02:04→14:12)
[2018-08-13 05:00] LABS: PLATELET COUNT 128 10^3/uL (150-400)
[2018-08-13] MEDS: POLYETHYLENE GLYCOL 3350 17 GM PKT PO PRN (05:44)
--- NOTE | 2018-08-13 06:57 | SOAPPROG ---
SOAP Progress Note Assessment/Plan: Assessment: 2nd day post op Left Periacetabular Osteotomy Plan: Pelvis x-ray PT/OT SCDs/81mg aspirin for DVT prophylaxis dc home today or tomorrow 08/13/18 06:53 Subjective: LATE ENTRY: PT seen at 2030 last night Last night Claudia was well pain controlled, Ervin was out and she was ambulating with a walker. She had a large EBL in the OR about 1800cc return 900cc but did not report any suspicious symptoms. She denied any cp, sob or nausea. Objective: Vital Signs Temp Pulse Resp BP Pulse Ox 37.3 C 65 14 106/54 L 96 08/12/18 23:06 08/12/18 23:06 08/12/18 23:06 08/12/18 23:06 08/12/18 23:06 Laboratory Results 08/13/18 04:40 08/11/18 04:46 08/12/18 08/13/18 08/14/18 05:59 05:59 05:59 Intake Total 2850 1976 Output Total 2400 1850 Balance 450 126 Well appearing in NAD LEFT HIP: edema, some ecchymosis no thigh numbness NVI distally full ROM of foot and ankle - Pending Discharge Pending Discharge Within 24 Hours: Yes Pending Discharge Date: 08/14/18 Pending Discharge Time: 11:00 ICD10 Worksheet Patient Problems: Problems Problem Status Onset Hip dysplasia Acute
[2018-08-13 07:22] VITALS: BP 112/62
[2018-08-13] MEDS: ASPIRIN EC 81 MG TAB PO SCH (09:51)
[2018-08-13] MEDS: SENNOSIDES/DOCUSATE SODIUM TAB PO SCH (09:51)
[2018-08-13] MEDS: PANTOPRAZOLE SODIUM 40 MG TAB PO SCH (09:51)
--- NOTE | 2018-08-13 10:56 | HOSPPROG ---
Hospitalist Progress Note Assessment/Plan: 27 year old female admitted for periacetabular osteotomy. Post op hypotension- stable and patient not really symptomatic. ensure taking adequate po. Acute blood loss anemia- H/H stable from yesterday Thrombocytopenia- platelets rebounded today Leukocytosis- resolved today. No evidence of infection. Monitor Hip Pain-PO dilaudid DVT- asa, per Dr. Krueger Thank you for allowing us to participate in the care of this patient. Medicine will follow. Subjective: feels better today, mild faintness with ambulation but better than yesterday. Objective: Vital Signs Temp Pulse Resp BP Pulse Ox 36.9 C 77 15 112/62 93 08/13/18 07:21 08/13/18 07:21 08/13/18 07:21 08/13/18 07:21 08/13/18 07:21 Laboratory Results 08/13/18 04:40 08/11/18 04:46 08/12/18 08/13/18 08/14/18 05:59 05:59 05:59 Intake Total 2850 1976 450 Output Total 2400 1850 Balance 450 126 450 - Physical Exam Constitutional: no apparent distress, appears nourished, not in pain Eyes: PERRL, anicteric sclera, EOMI Ears, Nose, Mouth, Throat: moist mucous membranes, hearing normal, ears appear normal, no oral mucosal ulcers Cardiovascular: regular rate and rhythym, no murmur, rub, or gallop Respiratory: no respiratory distress, no rales or rhonchi, clear to auscultation Gastrointestinal: normoactive bowel sounds, soft, non-tender abdomen, no palpable masses Genitourinary: no bladder fullness, no bladder tenderness, no renal bruits Skin: no rashes or abrasions, no fluctuance, no induration Musculoskeletal: full muscle strength, no muscle tenderness, normal joint ROM Neurologic: AAOx3, sensation intact bilaterally Psychiatric: interacting appropriately, not anxious, not encephalopathic, thought process linear Lymph, Heme, Immunologic: no cervical LAD, no supraclavicular LAD ICD10 Worksheet Patient Problems: Problems Problem Status Onset Hip dysplasia Acute
--- NOTE | 2018-08-13 12:11 | SUROPNOTE ---
MAKENZIE Operative Report - Surgery [facility]~ Diagnosis:~Left 1. Hip Acetabular Dysplasia ~ Operation: Left~Maryam Acetabular Osteotomy (NAFISA) Surgeon: Chad Krueger MD [employer] Operator:~~Tari Parks MD Anesthetic: General + spinal Procedure: General anesthetic. Antibiotics given. Cell saver in use. Fluoroscopy. Phase 1: Position lateral, diagonal skin incision between ischial tuberosity and greater trochanter as for posterior hip approach. Blunt split of glut max fibers. Identification of fat pad overlying sciatic nerve. Exposure of sciatic nerve under fat pad, gently retracting it away-medially to ischial tuberosity. Exposure of subcotoloid fossa proximal to short rotators. UsingPrecision saw, osteotomy of subcotoloid [id number] mm short of (lateral to) thesciatic notch. Closure of lateral cut. Patient is turned supine. Phase 2: Skin incision just distal to ASIS. Using diathermy the iliac spine was exposed and inguinal ligament + Sartorious were retracted medially, taking the LFCN with them, protecting it. Inner ilium was dissected from iliacus muscle bluntly , with a cob and swab. Dissection continued towards lateral superior ramus pubis. Using fluoroscopy an osteotomy of lateral superior ramus, just medial to tear drop, was performed with~curved fish mouth osteotome. Phase 3: Osteotomy lines of the ilium were marked with diathermy as pre planned according to XR/CT and expected correction of acatabulum. 2 Shanz screws were drilled into central acetabular fragment, corresponding with planned correction angles, in order to mobilize central acetabular fragment after osteotomy is complete. ~Iliac osteotomy was performed with reciprocating saw and the main acetabular fragment was moved to realign weight bearing position. After confirmation of correction using fluoroscopy in AP and false profile planes, the fragment was fixed with 2 -~5.5mm~~full threaded~screws~and 1 -~4mm~~full threaded~screw. Inguinal ligament and Sartorious were attached back to ASIS through drill holes. Incision was closed according to soft tissue layers. Skin was closed with~subdermal Monocryl. Final fluoro shots were obtained to confirm position/correction. After surgery~Bri~moved both lower limbs and had no NV motor compromise. Specimen - none Bleeding -~250ml Complication - none Evaluation under anesthesia: IR at 90 degrees hip flexion prior to NAFISA was~10-15~degrees and after NAFISA was 5~ degrees. Bleeding:~250~cc into cell-saver, 135ml~of blood products were returned to patient. Post op instructions: 1.~Non~weight bearing crutches for 3~weeks 2. Continuous SCD 3. Aspirin 81 mg X1 day starting POD1 4. Avoid hip flexion past 90 and hip External rotation. 5. PT according to my recommendations at follow up visit Kind regards, Dr. Chad Krueger .
--- NOTE | 2018-08-13 13:48 | ASMTLACE ---
LACE Length of stay for Answers: 4-6 days current admission Acuity / Level of Answers: Yes Care: Did the patient have an inpatient admission? Comorbidities - select Answers: Opioid dependence all that apply / Chronic pain # of Emergency department Answers: 0 visits in the last 6 months Score: 11 Date Signed: 08/13/2018 01:46 PM Electronically Signed By:JAMAAL Garcia
--- NOTE | 2018-08-17 22:46 | GDS ---
[f rep st] DISCHARGE SUMMARY The patient underwent a left periacetabular osteotomy on August 10, 2018. Intraoperatively, Ervin and spinal catheters were placed. She was well pain managed with the spinal, [employer] and oral analgesics. She was up with physical therapy and her Ervin catheter was discontinued by her 2nd postoperative day . She wore SCDs and took 81 mg baby aspirin daily for DVT prophylaxis. Pelvis x-rays obtained on he r 3rd postoperative day showed good bone and screw fixation and she was discharged that day in good c ondition. She will go home nonweightbearing on her left lower extremity until 2 weeks for her postop erative exam. She will be wearing sequential compression devices 24 hours a day, 7 days a week for 2 weeks and thereafter only at night for another week and take 81 mg baby aspirin daily for 1 month, b oth of these for DVT prophylaxis. She was given a full set of discharge instructions and was dischar [facility] in good condition. /[id number]/MODL
== END 2018-08-13 16:30 | disposition home or self-care (01) | DRG 516 ==
LOC: F3N 05:52
PROVIDERS: ADMIT Orthopaedic Surgery Sports Medicine; ATTEND Orthopaedic Surgery Sports Medicine
PROC: 0QS504Z Reposition Left Acetabulum with Internal Fixation Device, Open Approach (ICD-10-PCS; principal; 2018-08-10 07:15)
DX: Q65.89 Other specified congenital deformities of hip (principal); D62 Acute posthemorrhagic anemia; I95.81 Postprocedural hypotension; D69.6 Thrombocytopenia, unspecified; M41.9 Scoliosis, unspecified; J45.998 Other asthma
CPT/HCPCS: 97116-GP; 97162-GP; 97165-GO; 97535-GO; C1713; J0690; J1170; J2250; J2274; J2704; J3010

== ENCOUNTER 2018-08-26 06:02 | Inpatient (IN) | payer OTHER ==
--- NOTE | 2018-08-25 20:38 | PDGENHP ---
History and Physical - Chief Complaint LEFT HIP PAIN - History of Present Illness 1. Right~Hip Dyplasia~ 2. ~~History of Left NAFISA 3. Loss of correction from Left NAFISA HISTORY OF PRESENT ILLNESS: Gamais a~27 y.o.~very~~active~female~who I have had the pleasure to consult on today.~I have enjoyed meeting her.~Penelope~lives in [place].~~[employer] as a [employer] employee.~~She~is ;~she~has no~children. ~Gamaenjoys soccer (played for [employer]), running, hiking. Claudia's~left~hip pain started in around 10 yrs ago with worsening in last 1- 1.5 yrs, with~no~recalled trauma or injury, and with~some~previous complaints.~ Gamadoes not have~a known history of hip dysplasia, but does have a family history of dysplasia. Presentation today is of~anterolateral~left~hip pain deep inside. ~The hip~does~ wake her~at night and~does~click and catch on~her. Sitting~can be uncomfortable~ for her.~Gamadoes~report suffering from lower back pain episodes which preceded her hip pain.~She has scoliosis with 30 degree curve being managed conservatively.~As she has gotten her back pain under better control, her hip has become more bothersome. Gamahas~participated in physical therapy since early September 2017 (also did PT last summer)~and has~tried other conservative measures including dry needling, cortisone injection into the SIJs (2016- she had relatively good relief from these)~and chiropractic treatments.~She~has not~received sufficient symptomatic improvement. Gamahas~utilized medication for pain management, including NSAID.~Gamahas used medication for 2-3x per week at most intermittently for years. Gamadenies issues with the right~hip. ~ Gamaunderstands that~penelope~has a hip and pelvis problem which should be researched and wishes to get a better understanding of~her~hip status, followed by an establishment of a treatment strategy, hoping~penelope~would be able to get back to~her~well being active life. History: Past medical history:~~ Patient~~has a past medical history of Asthma, Scoliosis, and Unspecified asthma (493.90). Relevant familial history:~Hip dysplasia Past surgical history:~ No. Surgery Anesthesia Year Outcome 1 Sinus surgery Unknown In high school Stayed o/n to monitor asthma 2 Adenoids Unknown Childhood Good Claudia~describes problematic issues with general anesthesia which includes overnight monitoring for asthma. I have reviewed, verified and agree with the past medical, surgical, family and social history. Current Medications:~has a current medication list which includes the following prescription(s): albuterol, budesonide-formoterol, and diclofenac sodium 1%. ALLERGIES:~is allergic to sulfa (sulfonamide antibiotics). Objective: Physical Examination: Gamais 5~feet~4~inches tall and weighs~127~Lbs. Gamais AAO x3; she~is well -nourished, in NAD. Skin is warm and dry. ~Breathing is non-labored. ~CV with RRR by pulse. Abdomen is soft, NTND. Currently,~she~walks with a~normal~gait. Trendelenburg sign is~negative~and proprioception~is normal,~both~side. She~presents~with mild~signs of joint laxity.~Beightons Score:2 ~(knees) Lower spine examination is~negative~for sciatic or femoral nerve irritation with negative~SLR &~femoral stretch tests. Range of motion of the spine is normal~for flexion, extension, and rotations,~with~associated pain on flexion.~~ Strength, Sensation and pulses are~normal -~bilaterally Ankles and knees exams are~normal~and~no~mal-alignment is evident.~ She~has~small R<L~leg length discrepancy. Thigh circumference is~symmetric~with no evidence for muscle atrophy~on both~ side. Hip ROM (degrees): FL ER At 90~hip FL IR At 90~hip FL AB AD EX IR Neutral hip ER Neutral hip R 110 50 40 50 5 10 45 25 L 110 50 30 50 5 10 45 15 Specific hip and pelvis tests: Impingement Test KORTNEY Roll Add. Longus R Negative Negative Negative Negative L +++ +++ Negative Negative Glut. Med ITB Posterior Imp R Negative 5/5 strength Negative 5/5 strength Negative L Negative 5/5 strength Negative 5/5 strength Negative Squeeze test measured~normal Bony Symphysis pubis is~mildly painful to touch~while concentric activity of the rectus abdominis, does not~produce pain at its insertion. Ilio Psos specific tests are~negative for pain during cycling for~the right hip~ and remarkable for non painful snap HF has~some pain(+++) with no weakness~the left hip. No lateral~capsule tenderness on the L.~ Greater trochanteric burse is~mildly~painful~on the left hip. Piriformis tests: FAIR is~negative,~with no~local signs of neuritis related to sciatic nerve. SIJs examination is~produces~mild~~pain on right side~with~normal~KORTNEY in relation and local tenderness. Hamstrings tests are~negative~functional contraction and negative~tendinopathy both hips. On a daily basis, the following percentages reflectArturo's overall total pain: Deep hip:~75% SIJs/ low back:~25% Imaging: Radiology studies which I~have personally reviewed, analyzed and measured are below: XR: AP of the hip and pelvis: Performed in a~good~technique Coccyx to pubic symphysis distance~1.6~cm. 3~degrees cephal [place]~Lines are preserved. Minimal~Pathological signs are seen in the Symphysis Pubis.~ No~Pathological signs are seen at the Ischial~tuberosity. ~ Specific measurements show: NSA~ LCE Sourcil~Angle Sharp's angle Lat. Cam Lat. Pincer C.Over~sign Head~Coverage % ATDmm R 137 15 13 40 Neg Neg Neg 65% 31.3 L 143 11 17 48 Neg Neg 12 o'clock 61% 33.3 Pos. wall sign ISS NAD ~~Dysplasia Comments R Negative Negative 19.6~mm ++ L + Negative 18.9~mm +++ Sclerosis Sup. Lat. OA Cysts Joint Space-WBZ Joint Space-Medial R Negative Negative Negative 7.0~mm 6.6~mm L Negative Negative Negative 6.3~mm 6.4~mm X Table lateral: Anterior cam lesion is~not seen~on both hips. Alpha Angle: ~ Right~57~degrees Left~63~degrees Impression and plan:Wilmer Malloyis a~27 y.o.~active female~suffering from symptomatic~Left~hip pain due to Hip Dyplasia~and labral tear~causing significant disability to~her~and altering~her~sport and life activities. Physical examination, imaging, and~her~story correspond with the diagnosis mentioned above. I explained that hip dysplasia is a condition wherein the hip joint has excessive play and instability due to a variety of factors, including the depth and adequacy of the socket, the orientation of the femur bone, and ligament laxity around the hip joint. Dysplasia ranges in severity from borderline to armando, with treatment options being specific to the specific nature of the problem. Left untreated, the instability in the hip joint can cause progressive tearing of the labrum and deterioration of the surface cartilage, ultimately resulting in progressive osteoarthritis of the hip. I reviewed conservative treatment options for dysplasia including activity modification to avoid positions of instability, physical therapy, non-steroidal anti-inflammatory medications, and various injections (corticosteroid and PRP) aimed at reducing inflammation in the hip joint or/and preventing dynamic instability and impingement. Although these measures may help to buy time, they are not a definitive solution to the problem given the underlying abnormality in the shape of the hip joint. Patients who have failed conservative management and continue to experience symptoms are candidates for definitive surgical treatment, which may consist of hip arthroscopy alone or in combination with more invasive bony realignment procedures of the hip socket and/or femur called periacetabular osteotomy (NAFISA) or derotational femoral osteotomy (DFO). Hip arthroscopy typically includes treating the labrum with either repair or reconstruction of the torn labrum; as well as addressing the underlying abnormalities by restoring the normal shape of the hip joint. ~If the cartilage is damaged a Microfracture surgical procedure may also be necessary to help stimulate the growth of fibrocartilage. If a patient requires a labral reconstruction or a Microfracture, the initial rehabilitation from the surgery may take longer, but the detention results are typically favorable. I reviewed the technical aspects of periacetabular osteotomy (NAFISA) including risks, benefits, and expected course of recovery.~Claudia~understands that NAFISA is an inpatient procedure carried out through two medium sized incisions on the front and back of the hip joint. The hip socket is cut, realigned, and stabilized with 2 3 internal screws. Risks include infection, bleeding, injury to nearby nerves or vessels, stiffness, persistent pain, instability, failure of bony healing, implant related complications, and venous thromboembolic disease. Rarely, revision surgery may be required to address these problems. Risks, potential complications, side effects and recovery from surgical procedure were discussed in length. We explained how this surgery is an open procedure, and though patients tend to do well in the long-term, it involves significant pain in the first 2-4 weeks post-op and a rather lengthy rehab.~Overall recovery takes approximately 6 12~months depending on the extent of damage and degree of repair. Claudia~understands that she~will undergo hip arthroscopy 1 week prior to the NAFISA to address damage inside the hip joint. Claudia~understands that hip arthroscopy and NAFISA are two separate procedures that are best performed one week apart, with the arthroscopy commencing first to "tighten up" any pathology evident in the hip joint (labral repair, etc.) and the NAFISA open procedure occurring 7-10 days later to realign the acetabulum. Claudia~will review the info presented. In order to obtain more detailed information regarding the alignment, orientation, and shape of the bony hip and pelvis I will order a CT scan to be performed. The results of the CT scan, including femoral torsion and acetabular version measured values and 3D images, will aid me in deciding on the best treatment strategy and surgical pre-planning. In order to better evaluate the soft tissues and cartilage of the hip joint, I will order an MRI scan. Claudia is going to contact us after completing her imaging studies. Gamais happy with this plan. I have also supplied~her~with handouts, outlining the expected surgical treatment and rehab involved. I wish~Gamaall the best, ~~ Tari Ahuja MD History Information - Allergies/Home Medication List Allergies/Adverse Reactions: Sulfa (Sulfonamide Antibiotics) Allergy (Verified 08/06/18 11:00) Rash Home Medications: Albuterol [Proventil Inhaler HFA (*)] 1 - 2 puffs IH Q4H PRN 07/23/18 [Last Taken 1 Week Ago ~08/03/18] Ascorbic Acid [Vitamin C 500 mg (*)] 500 mg PO DAILY 08/03/18 [Last Taken 2 Weeks Ago ~07/27/18] Multivitamins [Multivitamin (*)] 1 each PO DAILY 08/03/18 [Last Taken 2 Weeks Ago ~07/27/18] Vitamin B Complex [Vitamin B Complex (OTC)] 1 each PO DAILY 08/03/18 [Last Taken 2 Weeks Ago ~07/27/18] I have personally reviewed and updated: medical history - Social History Smoking Status: Never smoked Review of Systems Review of Systems: Physical Exam Physical Exam:
[2018-08-26] MEDS ORDERED: ceFAZolin 2 GM/DEXTROSE 100 ML IV ONE (06:14)
[2018-08-26] MEDS ORDERED: ACETAMINOPHEN 500 MG TAB PO ONE (06:14)
[2018-08-26] MEDS ORDERED: TRANEXAMIC ACID 1,000 MG in NS 100 ML IV ONE (06:14)
[2018-08-26] MEDS ORDERED: PREGABALIN 150 MG CAP PO ONE (06:14)
[2018-08-26] MEDS ORDERED: SCOPOLAMINE HYDROBROMIDE 1 MG/3 DAYS PATCH TD ONE (06:14)
[2018-08-26] MEDS ORDERED: LR 1,000 ML IV ONE (06:15)
[2018-08-26] MEDS ORDERED: LIDOCAINE 1% 2 ML INJ ID PRN (06:15)
[2018-08-26] MEDS ORDERED: MIDAZOLAM 2 MG/2 ML VIAL IVP ONE (06:57)
--- NOTE | 2018-08-26 06:57 | PDANEPAE ---
ANE Past Medical History - Cardiovascular History Hx Hypertension: No Hx Arrhythmias: No Hx Chest Pain: No Hx Coronary Artery / Peripheral Vascular Disease: No Hx CHF / Valvular Disease: No Hx Palpitations: No - Pulmonary History Hx COPD: No Hx Asthma/Reactive Airway Disease: Yes Hx Recent Upper Respiratory Infection: No Hx Oxygen in Use at Home: No Hx Sleep Apnea: No Sleep Apnea Screening Result - Last Documented: Negative Pulmonary History Comment: EXERCISE INDUCED ASTHMA - Neurologic History Hx Cerebrovascular Accident: No Hx Seizures: No Hx Dementia: No - Endocrine History Hx Diabetes: No - Renal History Hx Renal Disorders: No - Liver History Hx Hepatic Disorders: No - Neurological & Psychiatric Hx Hx Neurological and Psychiatric Disorders: No - Cancer History Hx Cancer: No - Congenital Disorder History Hx Congenital Disorders: Yes Congenital History Comment: MARTHA HIP DYSPLASIA - GI History Hx Gastrointestinal Disorders: No - Other Health History Other Health History: ANEMIA IN THE PAST (2013) - Chronic Pain History Chronic Pain: Yes (MARTHA HIPS) - Surgical History Prior Surgeries: ADENOIDS. SINUS 2007 ANE Review of Systems Review of Systems: - Exercise capacity METS (RN): 6 METS ANE Patient History - Allergies Allergies/Adverse Reactions: Sulfa (Sulfonamide Antibiotics) Allergy (Verified 08/06/18 11:00) Rash - Home Medications Home Medications: Albuterol [Proventil Inhaler HFA (*)] 1 - 2 puffs IH Q4H PRN 07/23/18 [Last Taken 1 Week Ago ~08/03/18] Ascorbic Acid [Vitamin C 500 mg (*)] 500 mg PO DAILY 08/03/18 [Last Taken 2 Weeks Ago ~07/27/18] Multivitamins [Multivitamin (*)] 1 each PO DAILY 08/03/18 [Last Taken 2 Weeks Ago ~07/27/18] Vitamin B Complex [Vitamin B Complex (OTC)] 1 each PO DAILY 08/03/18 [Last Taken 2 Weeks Ago ~08/12/18] Naproxen 500 mg PO 08/26/18 [Last Taken 1 Day Ago ~08/25/18] - NPO status NPO Since - Liquids (Date): 08/26/18 NPO Since - Liquids (Time): 00:00 NPO Since - Solids (Date): 08/25/18 NPO Since - Solids (Time): 20:00 - Smoking Hx Smoking Status: Never smoked - Family Anes Hx Family Hx Anesthesia Complications: none ANE Labs/Vital Signs - Vital Signs Height: 162.56 cm Weight: 57.153 kg ANE Physical Exam - Airway Neck exam: FROM Mallampati Score: Class 2 Mouth exam: normal dental/mouth exam - Pulmonary Pulmonary: no respiratory distress - Cardiovascular Cardiovascular: regular rate and rhythym - ASA Status ASA Status: II ANE Anesthesia Plan Anesthesia Plan: general endotracheal anesthesia, spinal
[2018-08-26] MEDS ORDERED: fentaNYL 100 MCG/2 ML INJ ONE ×2 (07:00→08:44)
[2018-08-26] MEDS ORDERED: PROPOFOL/EMULSION 500 MG/50 ML BOTTLE IV ONE ×4 (07:00→11:05)
[2018-08-26] MEDS ORDERED: morphINE PF 5 MG/10 ML INJ ONE (07:01)
[2018-08-26] MEDS ORDERED: CITRATE DEXTROSE SOLN 500 ML BAG ONE ×2 (07:15→09:56)
[2018-08-26] MEDS ORDERED: GLYCOPYRROLATE 0.2 MG/1 ML VIAL ONE ×2 (11:29)
[2018-08-26] MEDS ORDERED: NEOSTIGMINE METHYLSULFATE 10 MG/10 ML MDV ONE (11:29)
[2018-08-26] MEDS ORDERED: ONDANSETRON 4 MG/2 ML VIAL ONE (11:29)
[2018-08-26] MEDS ORDERED: LIDOCAINE 2% 100 MG/5 ML SYR ONE (11:29)
[2018-08-26] MEDS ORDERED: DEXAMETHASONE 4 MG/ML VIAL ONE ×2 (11:29)
[2018-08-26] MEDS ORDERED: ceFAZolin 1 GM VIAL ONE (11:45)
[2018-08-26] MEDS ORDERED: fentaNYL 100 MCG/2 ML INJ IVP PRN (11:54)
[2018-08-26] MEDS ORDERED: NALOXONE HCL 0.4 MG/ML INJ IVP PRN ×3 (11:54→12:00)
[2018-08-26] MEDS ORDERED: ONDANSETRON 4 MG/2 ML VIAL IVP PRN ×2 (11:54→11:57)
[2018-08-26] MEDS ORDERED: ACETAMINOPHEN 500 MG TAB PO PRN (11:54)
[2018-08-26] MEDS ORDERED: MEPERIDINE 25 MG/0.5 ML AMP IVP PRN (11:54)
[2018-08-26] MEDS ORDERED: ALBUTEROL 3 ML DEYVIAL IH PRN (11:54)
[2018-08-26] MEDS ORDERED: ONDANSETRON DISINTEGRATING 4 MG TAB PO PRN (11:57)
[2018-08-26] MEDS ORDERED: ACETAMINOPHEN 325 MG TAB PO PRN (11:57)
[2018-08-26] MEDS ORDERED: BISACODYL 10 MG SUPP PR PRN (11:57)
[2018-08-26] MEDS ORDERED: POLYETHYLENE GLYCOL 3350 17 GM PKT PO PRN (11:57)
[2018-08-26] MEDS ORDERED: MAGNESIUM HYDROXIDE 30 ML UDCUP PO PRN (11:57)
[2018-08-26] MEDS ORDERED: LACTULOSE 20 GM/30 ML UDCUP PO PRN (11:57)
[2018-08-26] MEDS ORDERED: DIAZEPAM 2 MG TAB PO PRN (11:57)
[2018-08-26] MEDS ORDERED: diphenhydrAMINE 25 MG CAP PO PRN (12:00)
[2018-08-26] MEDS ORDERED: HYDROmorphONE/DILAUDID 6 MG/30 ML PCA IV PRN (12:00)
--- NOTE | 2018-08-26 12:32 | POSTANESTH ---
Post Anesthetic Evaluation Cardiovascular Status: Similar to Pre-Op Cond Respiratory Status: Similar to Pre-op Cond. Level of Consciousness/Mental Status: Mildly Sleepy, Arousable Pain Control: Adequate, Prn Tx Ordered Nausea/Vomiting Control: Adequate, Prn Tx Ordered Complications Possibly Related to Anesthesia: None Noted
[2018-08-26] MEDS: NS 1,000 ML IV SCH (13:00)
--- NOTE | 2018-08-26 15:22 | PDMN ---
Medical Necessity Medical necessity: Pt meets inpt criteria per MD order and Musculoskeletal Surgery GRG, Periacetabular osteotomy, MC IP only list. 27 y/o w/hx bilat hip dysplasia and L NAFISA admitted for NAFISA revision for loss of correction from previous L NAFISA and post-op care.
[2018-08-26] MEDS: oxyCODONE IR 5 MG TAB PO SCH ×3 (15:26→20:58)
[2018-08-26] MEDS: NAPROXEN SODIUM 220 MG TAB PO SCH ×2 (17:30→20:57)
[2018-08-26] MEDS: SENNOSIDES/DOCUSATE SODIUM TAB PO SCH (20:58)
--- NOTE | 2018-08-26 22:47 | SUROPNOTE ---
MAKENZIE Operative Report - Surgery Surgery was performed at [facility] on~08/26/18~ Diagnosis:~Left 1. Hip Acetabular Dysplasia ~ Operation/indication: Left~Revision fixation of~Maryam Acetabular Osteotomy (NAFISA)~after loss of fixation and loss of correction~ Surgeon: Chad Krueger MD Typesetters Printer:~~Ted Portillo AP Anesthetic: General + spinal Procedure: General anesthetic. Antibiotics given. Cell saver in use. Fluoroscopy. Skin incision~over previous anterior incision from 2 weeks ago. Exposure and separation of Inguinal ligament + Sartorious~which~were retracted medially, taking the LFCN with them, protecting it. Inner ilium was dissected from iliacus muscle bluntly, with a cob and swab.~ Bone graft was removed and kept. 3 of 4 screws were backed out and~2 Shanz screws were drilled into central acetabular fragment in order to mobilize central acetabular fragment.~ Last screw was backed out half way. Using the external fixator the CAF was mobilized and moved to optimal correction /alignment. The screw was put back in and few pins helped keep the fragment in position. Several attempts were made to place the fragment in perfect position. This was finally achieved.~ After confirmation of correction using fluoroscopy in AP and false profile planes, the fragment was fixed with~2 -~5.5mm~~full threaded~screws~and 2 -~ 6.5mm~~full threaded~screws~and 2 3.5mm locked plates with 4 screws in CAF. Inguinal ligament and Sartorious were attached back to ASIS through drill holes. Incision was closed according to soft tissue layers. Skin was closed with~subdermal Monocryl. Final fluoro shots were obtained to confirm position/correction. After surgery~Claudia~moved both lower limbs and had no NV motor compromise. Specimen - none Bleeding -~550ml Complication - none Evaluation under anesthesia: IR at 90 degrees hip flexion prior to NAFISA was~30 (0 before re-correction(~ degrees and after NAFISA was 5~degrees. Bleeding:~550~cc into cell-saver, 270~of blood products were returned to patient. Post op instructions: 1.~Non~weight bearing crutches for 4~weeks 2. Continuous SCD 3. Aspirin 81 mg X1 day starting POD1 4. Avoid hip flexion past 90 and hip External rotation. 5. PT according to my recommendations at follow up visit Kind regards, Dr. Chad Krueger .
[2018-08-27] MEDS: NS 1,000 ML IV SCH (00:58)
[2018-08-27] MEDS: oxyCODONE IR 5 MG TAB PO SCH ×4 (01:00→13:56)
[2018-08-27] MEDS ORDERED: PANTOPRAZOLE SODIUM 40 MG TAB PO SCH (09:00)
[2018-08-27] MEDS: NAPROXEN SODIUM 220 MG TAB PO SCH (09:15)
[2018-08-27] MEDS: SENNOSIDES/DOCUSATE SODIUM TAB PO SCH (09:16)
[2018-08-27 11:44] VITALS: BP 102/55
--- NOTE | 2018-08-27 15:11 | ASMTLACE ---
LACE Length of stay for Answers: 2 days current admission Acuity / Level of Answers: Yes Care: Did the patient have an inpatient admission? Comorbidities - select Answers: Opioid dependence all that apply / Chronic pain # of Emergency department Answers: 0 visits in the last 6 months Score: 9 Date Signed: 08/27/2018 03:10 PM Electronically Signed By:JAMAAL Garcia
--- NOTE | 2018-08-27 15:13 | ASMTCMCOM ---
CM Note CM Note Notes: Pt medically stable for d/c to parents home with family/ support. PT rec outpatient. Pt has no PCP, declines help with a list reporting she plans to move soon and will call insurance for referral. No CM d/c needs identified. Date Signed: 08/27/2018 03:12 PM Electronically Signed By:JAMAAL Garcia
[2018-08-28] MEDS ORDERED: ASPIRIN EC 81 MG TAB PO SCH (11:57)
== END 2018-08-27 14:50 | disposition home or self-care (01) | DRG 497 ==
LOC: F3N 06:02 → OBSVTOIN 12:01 → F3N 13:51
PROVIDERS: ADMIT Orthopaedic Surgery Sports Medicine; ATTEND Orthopaedic Surgery Sports Medicine
PROC: 0QS504Z Reposition Left Acetabulum with Internal Fixation Device, Open Approach (ICD-10-PCS; principal; 2018-08-26 07:15)
PROC: 0QP504Z Removal of Internal Fixation Device from Left Acetabulum, Open Approach (ICD-10-PCS; principal; 2018-08-26 07:15)
DX: T84.298A Other mechanical complication of internal fixation device of other bones, initial encounter (principal); Z98.890 Other specified postprocedural states; J45.909 Unspecified asthma, uncomplicated
CPT/HCPCS: 97116-GP; 97161-GP; 97165-GO; J0690; J1100; J1170; J2001; J2250; J2274; J2405; J2704; J3010